=== PATIENT | female | born 1985 | race Caucasian/White ===

== ENCOUNTER 2019-02-03 06:07 | Emergency (ER) | payer OTHER ==
[2019-02-03 07:24] VITALS: BP 132/84
--- NOTE | 2019-02-03 07:49 | ED ---
Throat Pain/Nasal Congestion - HPI Summary HPI Summary: Patient is a 33-year-old female who presents emergency department with possible foreign body to left ear. Patient states this morning she felt which she believes is a month crawling on the left side of her face that she believes went into her left ear. Patient notes she uses a fluttering sound. Symptoms are mild in severity. No modifying factors. - History of Current Complaint Chief Complaint: EDEarPain Time Seen by Provider: 02/03/19 06:23 Hx Obtained From: Patient - Allergies/Home Medications Allergies/Adverse Reactions: Allergies Allergy/AdvReac Type Severity Reaction Status Date / Time No Known Allergies Allergy Verified 02/03/19 06:25 PMH/Surg Hx/FS Hx/Imm Hx Previously Healthy: Yes Psychiatric History: Reports: Hx Anxiety Infectious Disease History: No Infectious Disease History: Denies: History Other Infectious Disease, Traveled Outside the in Last 30 Days - Family History Known Family History: Positive: Non-Contributory Negative: Blood Disorder Family History: no cardio vascular history in family lineage - Social History Occupation: Unemployed Lives: With Family Alcohol Use: Occasionally Substance Use Type: Reports: None Smoking Status (MU): Never Smoked Tobacco Review of Systems Positive: Other - FB left ear All Other Systems Reviewed And Are Negative: Yes Physical Exam Triage Information Reviewed: Yes Vital Signs On Initial Exam: Initial Vitals Temp Pulse Resp BP Pulse Ox 98.2 F 88 16 146/110 98 02/03/19 06:08 02/03/19 06:08 02/03/19 06:08 02/03/19 06:08 02/03/19 06:08 Vital Signs Reviewed: Yes Appearance: Positive: Well-Appearing - Pt. sitting on bed in NAD. Family present. Skin: Positive: Warm, Dry Head/Face: Positive: Normal Head/Face Inspection Eyes: Positive: Normal, EOMI ENT: Positive: Other - Fluttering insect in left ear canal. Neck: Positive: Supple Musculoskeletal: Positive: Normal, Strength/ROM Intact Neurological: Positive: Normal, CN Intact II-III Psychiatric: Positive: Affect/Mood Appropriate Procedures - Procedure Summary Procedure Summary: Foreign body removal left ear: Left ear was flushed with warm water and H2O2. winged insect was eventually flushed from left ear in its entirety. Insect appears to be a moth. Ear re-examined and TM is intact. Inner canal near TM is erythematous and irritated. Diagnostics - Vital Signs Vital Signs Temp Pulse Resp BP Pulse Ox 02/03/19 07:23 98.1 F 72 18 132/84 98 02/03/19 06:08 98.2 F 88 16 146/110 98 - Laboratory Lab Statement: Any lab studies that have been ordered have been reviewed, and results considered in the medical decision making process. EENT Course/Dx - Course Course Of Treatment: Patient with left foreign body to ear which appears to have been a moth. Insect was successfully removed as noted above. Tympanic membrane is intact. Patient does have some mild irritation to the inner canal secondary to insect. Patient to follow-up with ENT if needed. Patient understands and agrees. - Differential Diagnoses Differential Diagnoses: Foreign Body, Otitis Externa, Otitis Media - Diagnoses Provider Diagnoses: Ear foreign body Discharge ED - Sign-Out/Discharge Documenting (check all that apply): Patient Departure Patient Received Moderate/Deep Sedation with Procedure: No - Discharge Plan Condition: Improved Disposition: HOME Patient Education Materials: Ear Foreign Body (ED) Referrals: Golden Mccurdy MD [Medical Doctor] - Additional Instructions: Follow up with ENT if needed Return to ER if symptoms change or worsen - Billing Disposition and Condition Condition: IMPROVED Disposition: Home - Attestation Statements Provider Attestation: I was available for consultation for this patient. I did not evaluate the patient or participate in any medical decision making or disposition decisions unless I am specifically named in the chart as having consulted on the patient. If I have consulted on the patient, please see my own ED note on the patient encounter. Zackery Ruiz MD
== END 2019-02-03 07:23 | disposition home or self-care (01) ==
LOC: ED 06:07
DX: T16.2XXA Foreign body in left ear, initial encounter (principal); X58.XXXA Exposure to other specified factors, initial encounter; Y92.9 Unspecified place or not applicable
CPT/HCPCS: 69200; 99282

== ENCOUNTER 2019-04-19 08:46 | Emergency (ER) | payer OTHER ==
--- NOTE | 2019-04-19 09:21 | ED ---
GI/ HPI - HPI Summary HPI Summary: Pt. is a 33 y.o female who presents to the ER for lower abd. pain x several months. Pt. notes she also noticed discomfort with urination. Pt. currently has an IUD she states is due to be taken out but she does not like her current [facility] and would like to see someone new. Pt. otherwise denies fever, chills, V/D/C. She denies vaginal discharge or irregular bleeding. Pt. denies concern for STI as she is in a monogamous relationship with her . Pt. states pain is intermittent. Sxs are moderate in severity. No current modifying factors. - History of Current Complaint Chief Complaint: EDUrogenitalProblems Time Seen by Provider: 04/19/19 09:16 Stated Complaint: PAINFUL URINATION PER PT Hx Obtained From: Patient Hx Last Menstrual Period: pt on mirena and does not get a menses Pain Intensity: 3 - Allergy/Home Medications Allergies/Adverse Reactions: Allergies Allergy/AdvReac Type Severity Reaction Status Date / Time No Known Allergies Allergy Verified 04/19/19 08:50 PMH/Surg Hx/FS Hx/Imm Hx Previously Healthy: Yes Psychiatric History: Reports: Hx Anxiety Infectious Disease History: No Infectious Disease History: Denies: History Other Infectious Disease, Traveled Outside the [place] in Last 30 Days - Family History Known Family History: Positive: Non-Contributory Negative: Blood Disorder Family History: no cardio vascular history in family lineage - Social History Occupation: Unemployed Lives: With Family Alcohol Use: Occasionally Substance Use Type: Reports: None Smoking Status (MU): Never Smoked Tobacco Review of Systems Constitutional: Negative Negative: Fever, Chills Positive: Abdominal Pain. Negative: Vomiting, Diarrhea Positive: dysuria. Negative: discharge, flank pain, hematuria Skin: Negative All Other Systems Reviewed And Are Negative: Yes Physical Exam Triage Information Reviewed: Yes Vital Signs On Initial Exam: Initial Vitals Temp Pulse Resp BP Pulse Ox 98.3 F 82 15 155/78 100 04/19/19 08:49 04/19/19 08:49 04/19/19 08:49 04/19/19 08:49 04/19/19 08:49 Vital Signs Reviewed: Yes Appearance: Positive: Well-Appearing - Pt. sitting up in bed in NAD. SO present. Skin: Positive: Warm, Dry Head/Face: Positive: Normal Head/Face Inspection Eyes: Positive: Normal, EOMI Neck: Positive: Supple Respiratory/Lung Sounds: Positive: Clear to Auscultation, Breath Sounds Present Cardiovascular: Positive: Normal, RRR Abdomen Description: Positive: Other: - Obese. Abd. is soft and nontender throughout.. Negative: CVA Tenderness (R), CVA Tenderness (L) Neurological: Positive: Normal, CN Intact II-III Psychiatric: Positive: Affect/Mood Appropriate Procedures - Sedation Patient Received Moderate/Deep Sedation with Procedure: No Diagnostics - Vital Signs Vital Signs Temp Pulse Resp BP Pulse Ox 04/19/19 08:49 98.3 F 82 15 155/78 100 - Laboratory Result Diagrams: 04/19/19 10:05 04/19/19 10:05 Lab Statement: Any lab studies that have been ordered have been reviewed, and results considered in the medical decision making process. GIGU Course/Dx - Course Course Of Treatment: Pt. with ongoing lower abd. pain x several months. She has a benign abd. exam. Labs are unremarkable including negative preg and normal CBC. U/A negative for infection. Results discussed. Recommned pt. call [facility] today for close f.u apt. NSAIDS for pain as directed. To return to ER if sxs change or worsen. pt. understands and agree . - Diagnoses Differential Diagnoses - Female: Appendicitis, Ectopic , Urinary Tract Infection Provider Diagnoses: Abdominal pain Discharge ED - Sign-Out/Discharge Documenting (check all that apply): Patient Departure - Discharge Plan Condition: Good Disposition: HOME Patient Education Materials: Pelvic Pain in Women (ED) Referrals: Bri Marte MD [Medical Doctor] - Additional Instructions: Call [facility] clinic today to schedule a close follow up appointment for further evaluation of pain Tylenol or Motrin for pain as directed Return to ER for increased pain, fever, vomiting, or if concerned - Billing Disposition and Condition Condition: GOOD Disposition: Home
[2019-04-19 09:38] LABS: Urine Appearance Clear; Urine Bilirubin Negative (Negative); Urine Blood Negative (Negative); Urine Color Yellow; Urine Glucose Negative (Negative); Urine Ketones Negative (Negative); Urine Nitrite Negative (Negative); Urine Protein Negative (Negative); Urine Specific Gravity 1.005 (1.010-1.030); Urine Urobilinogen Negative (Negative)
[2019-04-19 10:11] LABS: ABS Eosinophils 0.1 10^3/ul (0-0.6); ABS Lymphocytes 0.8 10^3/ul (1.0-4.8); ABS Monocytes 0.3 10^3/ul (0-0.8); Eosinophil % 2.5 %; Hematocrit 42 % (35-47); Hemoglobin 13.9 g/dL (12.0-16.0); Mean Corpuscular HGB Conc 33 g/dL (31-36); Mean Corpuscular Hemoglobin 30 pg (27-31); Mean Corpuscular Volume 91 fL (80-97); Mean Platelet Volume 7.6 fL (7.4-10.4); Platelet Count 255 10^3/uL (150-450); Red Blood Count 4.58 10^6 /uL (3.70-4.87); Red Cell Distribution Width 14 % (10-15); White Blood Count 5.3 10^3/uL (3.5-10.8)
[2019-04-19 10:30] LABS: Anion Gap 5 mmol/L (2-11); BUN/Creatinine Ratio 12.3 (8-20); Blood Urea Nitrogen 10 mg/dL (6-24); CO2 Carbon Dioxide 27 mmol/L (22-32); Calcium 9.3 mg/dL (8.6-10.3); Chloride 108 mmol/L (101-111); EGFR African American 98.5 (>60); EGFR Non-African American 81.4 (>60); Glucose 101 mg/dL (70-100); Potassium 4.2 mmol/L (3.5-5.0); Sodium 140 mmol/L (135-145)
[2019-04-19 10:37] LABS: HCG Pregnancy < 0.60 mIU/mL
[2019-04-19 11:12] VITALS: BP 141/73
== END 2019-04-19 11:11 | disposition home or self-care (01) ==
LOC: ED 08:46
DX: R10.9 Unspecified abdominal pain (principal); R30.0 Dysuria
CPT/HCPCS: 36415; 80048; 81003; 84702; 85025; 99282

== ENCOUNTER 2019-06-08 07:13 | Emergency (ER) | payer OTHER ==
--- NOTE | 2019-06-08 07:17 | ED ---
Throat Pain/Nasal Congestion - HPI Summary HPI Summary: 33-year-old female with no significant past history who is currently experiencing a resolving upper respiratory infection presents to the emergency department today complaining of "a mass" on her right eyeball. Patient states she awoke this morning and had a foreign body sensation in her right eye as well as a clear watery discharge and mild irritation and itching of the right eye. Patient denies pain of her right eye or changes in vision. Patient denies neurological deficit. Patient denies fever, chest pain, abdominal pain, urination, rash, shortness of breath. Family history and surgical history noncontributory. - History of Current Complaint Chief Complaint: EDEyeProblem Time Seen by Provider: 06/08/19 07:17 Hx Obtained From: Patient Onset/Duration: Sudden Onset Severity: Moderate Associated Signs And Symptoms: Positive: FB Sensation Cough: Nonproductive - Allergies/Home Medications Allergies/Adverse Reactions: Allergies Allergy/AdvReac Type Severity Reaction Status Date / Time No Known Allergies Allergy Verified 06/08/19 07:16 PMH/Surg Hx/FS Hx/Imm Hx Psychiatric History: Reports: Hx Anxiety Infectious Disease History: No Infectious Disease History: Denies: History Other Infectious Disease, Traveled Outside the [place] in Last 30 Days - Family History Known Family History: Positive: Non-Contributory Negative: Blood Disorder Family History: no cardio vascular history in family lineage - Social History Alcohol Use: Occasionally Substance Use Type: Reports: None Smoking Status (MU): Never Smoked Tobacco Review of Systems Constitutional: Negative Eyes: Negative ENT: Negative Cardiovascular: Negative Positive: Cough. Negative: Shortness Of Breath Gastrointestinal: Negative Genitourinary: Negative Musculoskeletal: Negative Skin: Negative Neurological: Negative Psychological: Normal All Other Systems Reviewed And Are Negative: Yes Physical Exam - Summary Physical Exam Summary: Inspection of the left eye is within normal limits. Inspection of the right eye reveals scleral erythema as well as ecchymosis noted to the right lateral aspect of the sclera. Patient has 20/20 visual acuity bilaterally, EOMI, PERRLA. There is evidence of copious thin clear discharge from the right eye. Patient has mild preauricular lymphadenopathy on the right and a resolving upper respiratory infection. Triage Information Reviewed: Yes Vital Signs On Initial Exam: Initial Vitals Temp Pulse Resp BP Pulse Ox 97.7 F 97 16 154/95 98 06/08/19 07:14 06/08/19 07:14 06/08/19 07:14 06/08/19 07:14 06/08/19 07:14 Appearance: Positive: Well-Appearing, No Pain Distress, Well-Nourished Skin: Positive: Warm, Skin Color Reflects Adequate Perfusion Eyes: Positive: EOMI, JALEEL, Conjunctiva Inflammed ENT: Positive: Hearing grossly normal, TMs normal Respiratory/Lung Sounds: Positive: Clear to Auscultation, Breath Sounds Present Cardiovascular: Positive: RRR, S1, S2 Musculoskeletal: Positive: Strength/ROM Intact Neurological: Positive: Sensory/Motor Intact, Alert, Oriented to Person Place, Time, Normal Gait, Facial Symmetry, Speech Normal Psychiatric: Positive: Normal AVPU Assessment: Alert Procedures - Sedation Patient Received Moderate/Deep Sedation with Procedure: No Diagnostics - Vital Signs Vital Signs Temp Pulse Resp BP Pulse Ox 06/08/19 07:14 97.7 F 97 16 154/95 98 - Laboratory Lab Statement: Any lab studies that have been ordered have been reviewed, and results considered in the medical decision making process. EENT Course/Dx - Course Course Of Treatment: Patient was evaluated in the emergency room for a mass on her right eye. Patient seen and examined her vitals were stable and she is afebrile. Physical exam was consistent while viral conjunctivitis and right based off of scleral erythema, ecchymosis, preauricular lymphadenopathy and a lack of copious purulent discharge. Patient was instructed to apply cool compresses and use saline eyedrops as needed for alleviation of her symptoms. Patient was discharged with PCP follow-up. - Differential Diagnoses Differential Diagnoses: Abrasion, Conjunctivitis, Corneal Abrasion - Diagnoses Provider Diagnoses: Viral conjunctivitis, right eye Discharge ED - Sign-Out/Discharge Documenting (check all that apply): Patient Departure - Discharge Plan Condition: Stable Disposition: HOME Patient Education Materials: Conjunctivitis (ED) Referrals: [facility] [Outside] - 5 Days No Primary Care Phys,NOPCP [Primary Care Provider] - Additional Instructions: You were seen in the emergency department today and diagnosed with viral conjunctivitis of your right eye. This is a self-limiting disease and will resolve on its own shortly. In the meantime please use cool compresses and over -the-counter saline eye drops as needed for alleviation of your symptoms. Please follow up with your primary care provider in 5 days for further evaluation and management of your symptoms. Please return to the emergency department immediately if you develop any new or worsening symptoms. - Billing Disposition and Condition Condition: STABLE Disposition: Home
--- OUTSIDE RECORDS SUMMARY | 2019-06-08 07:22 | XMS REPORT | Continuity of Care Document ---
:1985 External Reference #:[id number] Author Name Pool Crespo JR, DO (transmitted by agent of provider Libia Miguel ) Address [address], [place] [address] Problems Description No Information Available Social History Type Date Description Comments Sex Unknown Allergies, Adverse Reactions, Alerts Description No Known Drug Allergies Medications Active Medications SIG Qnty Indications Ordering Provider Date Melatonin 1mg Pool Crespo JR, DO 04/26/2019 Capsules Tylenol Unknown Immunizations CPT Code Status Date Vaccine Lot # [id number] Given 03/06/2010 Influenza Virus Vaccine 3Years Or Older Vital Signs Date Vital Result Comment 04/26/2019 1:07pm BP Systolic 124 mmHg BP Diastolic 82 mmHg Height 62.75 inches 5'2.75" Weight 234.00 lb BMI (Body Mass Index) 41.8 kg/m2 Last Menstrual Period [id number] 2 Parity 2 08/17/2010 12:55pm BP Systolic 120 mmHg BP Diastolic 68 mmHg Height 62.75 inches 5'2.75" Weight 222.00 lb BMI (Body Mass Index) 39.6 kg/m2 Results Description No Information Available Procedures Description No Information Available Medical Devices Description No Information Available Encounters Description No Information Available Assessments Description No Information Available Plan of Treatment No Information Available Functional Status Description No Information Available Mental Status Description No Information Available Referrals Description No Information Available
[2019-06-08 08:30] VITALS: BP 161/115
== END 2019-06-08 08:44 | disposition home or self-care (01) ==
LOC: ED 07:13
DX: B30.9 Viral conjunctivitis, unspecified (principal)
CPT/HCPCS: 99281